=== PATIENT | female | born 1940 | race Caucasian/White ===

== ENCOUNTER 2017-12-05 00:21 | Emergency (ER) | payer MEDICARE ==
[2017-12-05] MEDS ORDERED: Ondansetron HCl/PF 4 MG/2 ML Vial ONE (00:51)
[2017-12-05 01:22] LABS: Hemoglobin 10.3 g/dL (12.0-16.0); Mean Corpuscular HGB CONC 33.8 g/dL (32.0-36.0); Mean Corpuscular Hemoglobin 32.2 pg (27.0-31.0); Mean Corpuscular Volume 95.1 fL (78.0-98.0); Mean Platelet Volume 7.1 fL (7.4-10.4); Platelet Count 287 thou/uL (130-400); RBC Distribution Width 12.1 % (11.5-14.5); Red Blood Cell (RBC) Count 3.21 mill/uL (4.20-5.40); White Blood Cell (WBC) Count 10.8 thou/uL (4.8-10.8)
[2017-12-05 01:39] LABS: Band 2 % (5-11); Eosinophils 2 % (0-10); Lymphocytes 12 % (21-51); MDiff Complete? YES; Monocytes 5 % (0-10); Neutrophil 79 % (42-75)
[2017-12-05 01:41] LABS: ALT (SGPT) 14 U/L (8-55); AST (SGOT) 13 U/L (5-34); Albumin 3.9 g/dL (3.4-4.8); Alkaline Phosphatase 105 U/L (40-150); Anion Gap 15 mmol/L (10-20); BUN (Urea Nitrogen) 29 mg/dL (9.8-20.1); Bilirubin, Total 0.6 mg/dL (0.2-1.2); Calc. Creatinine Clearance 0 mL/min (70-130); Calcium 9.3 mg/dL (7.8-10.44); Carbon Dioxide 24 mmol/L (23-31); Chloride 104 mmol/L (98-107); Estimated GFR-MDRD 33; Globulin 3.4 g/dL (2.4-3.5); Glucose 133 mg/dL (83-110); Potassium 3.6 mmol/L (3.5-5.1); Protein, Total 7.3 g/dL (6.0-8.3); Sodium 139 mmol/L (136-145)
[2017-12-05 03:07] LABS: Bilirubin Negative (Negative); Blood, Urine Negative (Negative); Clarity CLEAR (Clear); Glucose, Urine (Dipstick) Negative (Negative); Leukocyte Small (Negative); Nitrite Negative (Negative); Protein, Urine (Dipstick) Negative (Neg-Trace); Specific Gravity, Urine 1.011 (1.002-1.036); Urobilinogen 0.2 mg/dL (0.2-1.0); pH, Urine 5.5 (5.0-9.0)
[2017-12-05 03:10] LABS: Bacteria/HPF None Seen HPF (None Seen); Hyaline Casts/LPF 0-3 HYALINE CAST LPF (0-3 Hyaline); Pathc Cast-AUWi Flag 0.29 (0-2.49); RBC/HPF 0-3 HPF (0-3); Squamous Epithelial 0-3 HPF (0-3)
== END 2017-12-05 06:18 | disposition home or self-care (01) ==
LOC: ERS 00:21
DX: N39.0 Urinary tract infection, site not specified (principal); D64.9 Anemia, unspecified; E78.5 Hyperlipidemia, unspecified; I10 Essential (primary) hypertension; Z79.899 Other long term (current) drug therapy; Z79.82 Long term (current) use of aspirin
CPT/HCPCS: 36415; 80053; 81003; 81015; 83605; 85025; 87040; 87086; 96361; 96365; 96366; 96375; J1956; J2405